=== PATIENT | male | born 2000 | race American Indian/Alaskan Native ===

== ENCOUNTER 2020-09-22 02:21 | Inpatient (IN) | payer OTHER ==
[2020-09-22] MEDS ORDERED: FAMOTIDINE 20 MG TAB PO ONE (05:09)
[2020-09-22] MEDS ORDERED: DICYCLOMINE 20 MG TAB PO ONE (05:09)
[2020-09-22] MEDS ORDERED: ONDANSETRON 4 MG ODT TAB PO ONE (05:09)
[2020-09-22 06:12] LABS: Bacteria,Urine 1+ /HPF (Negative); Bilirubin,Urine NEG (Negative); Blood,Urine NEG (Negative); Color,Urine Yellow (Yellow); Mucus,Urine FEW /HPF; Urobilinogen,Urine < 2.0 mg/dL (<2.0)
[2020-09-22 06:25] LABS: Basophils % (Auto) 0.4 % (0.0-1.8); Eosinophils # (Auto) 0.2 K/mm3 (0.0-0.4); Eosinophils % (Auto) 1.9 % (0.0-4.3); Hematocrit 42.7 % (35.5-45.6); Hemoglobin 14.6 gm/dl (11.8-15.2); Lymphocytes # (Auto) 1.3 K/mm3 (1.2-5.4); Lymphocytes % (Auto) 12.3 % (13.4-35.0); Mean Corpuscular HGB Conc 34 % (32-34); Mean Corpuscular Volume 87 fl (84-94); Monocytes # (Auto) 0.4 K/mm3 (0.0-0.8); Monocytes % (Auto) 4.1 % (0.0-7.3); Platelet Count 313 K/mm3 (140-440); Red Blood Count 4.93 M/mm3 (3.65-5.03); Red Cell Distribution Width 13.1 % (13.2-15.2)
[2020-09-22 06:36] LABS: Alanine Aminotransferase 21 units/L (7-56); Albumin 5.1 g/dL (3.9-5); BUN/Creatinine Ratio 39; Blood Urea Nitrogen 27 mg/dL (9-20); Calcium 9.7 mg/dL (8.4-10.2); Hemolysis Index 8
[2020-09-22] MEDS ORDERED: SODIUM CHLORIDE 0.9% 1000 ML 1,000 ML IV ONE (07:52)
[2020-09-22] MEDS ORDERED: PANTOPRAZOLE 40 MG INJ IV ONE (08:12)
--- NOTE | 2020-09-22 08:31 | Emergency Department Report ---
ED General Adult HPI - General Chief complaint: Abdominal Pain Stated complaint: N/V Time Seen by Provider: 09/22/20 07:50 Source: patient, EMS Mode of arrival: Ambulatory Limitations: No Limitations - History of Present Illness Initial comments: This is a 20-year-old male who is not complaining of abdominal pain to me. He states that he just precipitously vomited black material at home last night. He states that he went to the bathroom and noticed that he had black watery stool. Patient has no prior history of GI bleeding. He denies being on NSAIDs or taking alcohol recently. He states his only medication is Advair and an albuterol inhaler for asthma. He denies a history of HIV. -: Sudden Location: abdomen (Apparently did complain of abdominal pain at triage) Radiation: non-radiation Consistency: now resolved Improves with: none Worsens with: none Associated Symptoms: denies other symptoms - Related Data Home Medications Medication Instructions Recorded Confirmed Last Taken Albuterol Mdi (or & Nicu Only) 01/01/15 01/01/15 01/01/15 [ProAir HFA Inhaler] Budesoni/Formotero 160-4.5(Nf) 01/01/15 01/01/15 01/01/15 [Symbicort 160-4.5] Previous Rx's Medication Instructions Recorded Last Taken Type Azithromycin [Zithromax Z-THONG] 250 mg PO DAILY #6 tablet 01/01/15 Unknown Rx Prednisone [Prednisone 5 mg (6-Day 5 mg PO .TAPER #1 tab.ds.pk 01/01/15 Unknown Rx Pack, 21 Tabs)] Albuterol Mdi (or & Nicu Only) 2 puff IH QID PRN #8.5 gram 02/01/20 Unknown Rx [ProAir HFA Inhaler] Naproxen 500 mg PO Q8H PRN #20 tablet 02/01/20 Unknown Rx Allergies Allergy/AdvReac Type Severity Reaction Status Date / Time No Known Allergies Allergy Verified 02/01/20 09:05 ED Review of Systems ROS: Stated complaint: N/V Other details as noted in HPI Constitutional: denies: chills, fever Eyes: denies: eye pain, vision change ENT: denies: ear pain, throat pain Respiratory: denies: cough, shortness of breath Cardiovascular: denies: chest pain, palpitations Endocrine: no symptoms reported Gastrointestinal: as per HPI Genitourinary: denies: urgency, dysuria Musculoskeletal: denies: back pain, arthralgia Skin: denies: rash, lesions Neurological: denies: headache, weakness, paresthesias Psychiatric: denies: anxiety, depression Hematological/Lymphatic: denies: easy bleeding, easy bruising ED Past Medical Hx - Past Medical History Previous Medical History?: Yes Hx Asthma: Yes - Surgical History Past Surgical History?: Yes Additional Surgical History: Ecmo machine - Social History Smoking Status: Never Smoker - Medications Home Medications: Home Medications Medication Instructions Recorded Confirmed Last Taken Type Albuterol Mdi (or & Nicu Only) 01/01/15 01/01/15 01/01/15 History [ProAir HFA Inhaler] Azithromycin [Zithromax Z-THONG] 250 mg PO DAILY #6 tablet 01/01/15 Unknown Rx Budesoni/Formotero 160-4.5(Nf) 01/01/15 01/01/15 01/01/15 History [Symbicort 160-4.5] Prednisone [Prednisone 5 mg (6-Day 5 mg PO .TAPER #1 tab.ds.pk 01/01/15 Unknown Rx Pack, 21 Tabs)] Albuterol Mdi (or & Nicu Only) 2 puff IH QID PRN #8.5 gram 02/01/20 Unknown Rx [ProAir HFA Inhaler] Naproxen 500 mg PO Q8H PRN #20 tablet 02/01/20 Unknown Rx ED Physical Exam - General Limitations: No Limitations General appearance: alert, in no apparent distress, other (Very asthenic individual) - Head Head exam: Present: atraumatic, normocephalic - Eye Eye exam: Present: normal appearance. Absent: scleral icterus - ENT ENT exam: Present: mucous membranes moist - Neck Neck exam: Present: normal inspection - Respiratory Respiratory exam: Present: normal lung sounds bilaterally. Absent: respiratory distress - Cardiovascular Cardiovascular Exam: Present: regular rate, normal rhythm. Absent: systolic murmur, diastolic murmur, rubs, gallop - GI/Abdominal GI/Abdominal exam: Present: soft, tenderness (Perhaps slight discomfort in the epigastric area), normal bowel sounds. Absent: guarding, rebound, rigid, organomegaly, mass, bruit, pulsatile mass - Rectal Rectal exam: Present: heme (+) stool (Small sample but melanotic, 3+ positive), prostate enlargement (Question) - Extremities Exam Extremities exam: Present: normal inspection - Back Exam Back exam: Present: normal inspection - Neurological Exam Neurological exam: Present: alert, oriented X3, CN II-XII intact. Absent: motor sensory deficit - Psychiatric Psychiatric exam: Present: normal affect, normal mood - Skin Skin exam: Present: warm, dry, intact, normal color. Absent: rash ED Course Vital Signs 09/22/20 05:02 Temperature 97.8 F Pulse Rate 97 H Respiratory 20 Rate Blood Pressure 104/71 O2 Sat by Pulse 95 Oximetry - Reevaluation(s) Reevaluation #1: Patient given IV fluids, Protonix. Admit to hospitalist service. GI consultation. Clinically stable at this time. 09/22/20 08:31 Reevaluation #2: Spoke with Dr. Christie. He stated he would see patient later. 09/22/20 08:33 ED Medical Decision Making - Lab Data Result diagrams: 09/22/20 05:49 09/22/20 05:49 Critical care attestation.: If time is entered above; I have spent that time in minutes in the direct care of this critically ill patient, excluding procedure time. ED Disposition Clinical Impression: Upper GI bleeding Disposition: 09 OP ADMIT IP TO THIS HOSP Is pt being admited?: Yes Does the pt Need Aspirin: No Condition: Stable Referrals: PRIMARY CARE, [Primary Care Provider] - 3-5 Days Time of Disposition: 08:33
[2020-09-22 10:22] LABS: INR 1.22 (0.87-1.13)
[2020-09-22 10:23] LABS: Partial Thromboplastin Time 29.5 Sec. (24.2-36.6)
[2020-09-22] MEDS ORDERED: ACETAMINOPHEN 325 MG TAB PO PRN (12:23)
[2020-09-22] MEDS ORDERED: ONDANSETRON 4 MG/2 ML INJ IV PRN (12:23)
--- NOTE | 2020-09-22 12:25 | History and Physical Report ---
History of Present Illness Date of examination: 09/22/20 Date of admission: 09/22/20 09:36 Chief complaint: Black stool History of present illness: 20 year old M with a medical history of asthma who presents to the ED with cc of black stool and bloody vomit. He mentions symptoms started about a month prior to presentation. He noted that he is having difficulty with eating as he fears that he will have some abdominal pain. He is not so sure if pain is worse with eating or not. He mentions pain is random. He denies any history of GI bleed in the past. He denies any use of NSAIDs. No history of malignancy. He does not take alcohol and does not smoke. In ER, further work-up showed stable hemoglobin. GI was consulted for further evaluation. Patient started on PPI and made n.p.o. Past History Past Medical History: other (Asthma) Medications and Allergies Allergies Allergy/AdvReac Type Severity Reaction Status Date / Time No Known Allergies Allergy Verified 02/01/20 09:05 Home Medications Medication Instructions Recorded Confirmed Last Taken Type Albuterol Mdi (or & Nicu Only) 01/01/15 01/01/15 01/01/15 History [ProAir HFA Inhaler] Azithromycin [Zithromax Z-THONG] 250 mg PO DAILY #6 tablet 01/01/15 Unknown Rx Budesoni/Formotero 160-4.5(Nf) 01/01/15 01/01/15 01/01/15 History [Symbicort 160-4.5] Prednisone [Prednisone 5 mg (6-Day 5 mg PO .TAPER #1 tab.ds.pk 01/01/15 Unknown Rx Pack, 21 Tabs)] Albuterol Mdi (or & Nicu Only) 2 puff IH QID PRN #8.5 gram 02/01/20 Unknown Rx [ProAir HFA Inhaler] Naproxen 500 mg PO Q8H PRN #20 tablet 02/01/20 Unknown Rx Review of Systems All systems: negative (Black stool) Exam - Constitutional Vitals: Temp Pulse Resp BP Pulse Ox 98.2 F 81 14 140/58 100 09/22/20 10:00 09/22/20 10:00 09/22/20 10:00 09/22/20 10:00 09/22/20 10:00 General appearance: Present: no acute distress, well-nourished - EENT Eyes: Present: PERRL ENT: hearing intact, clear oral mucosa - Neck Neck: Present: supple, normal ROM - Respiratory Respiratory effort: normal Respiratory: bilateral: CTA - Cardiovascular Heart Sounds: Present: S1 & S2. Absent: rub, click - Extremities Extremities: pulses symmetrical, No edema Peripheral Pulses: within normal limits - Abdominal General gastrointestinal: Present: soft, tender (Slight discomfort around the umbilical area), non-distended, normal bowel sounds Male genitourinary: Present: normal - Integumentary Integumentary: Present: clear, warm, dry - Musculoskeletal Musculoskeletal: gait normal, strength equal bilaterally - Psychiatric Psychiatric: appropriate mood/affect, intact judgment & insight - Neurologic Neurologic: CNII-XII intact, moves all extremities Results - Labs CBC & Chem 7: 09/22/20 05:49 09/22/20 05:49 Labs: Laboratory Last Values WBC 10.5 K/mm3 (4.5-11.0) 09/22/20 05:49 RBC 4.93 M/mm3 (3.65-5.03) 09/22/20 05:49 Hgb 14.6 gm/dl (11.8-15.2) 09/22/20 05:49 Hct 42.7 % (35.5-45.6) 09/22/20 05:49 MCV 87 fl (84-94) 09/22/20 05:49 MCH 30 pg (28-32) 09/22/20 05:49 MCHC 34 % (32-34) 09/22/20 05:49 RDW 13.1 % (13.2-15.2) L 09/22/20 05:49 Plt Count 313 K/mm3 (140-440) 09/22/20 05:49 Lymph % (Auto) 12.3 % (13.4-35.0) L 09/22/20 05:49 [place] % (Auto) 4.1 % (0.0-7.3) 09/22/20 05:49 Eos % (Auto) 1.9 % (0.0-4.3) 09/22/20 05:49 Baso % (Auto) 0.4 % (0.0-1.8) 09/22/20 05:49 Lymph # (Auto) 1.3 K/mm3 (1.2-5.4) 09/22/20 05:49 [place] # (Auto) 0.4 K/mm3 (0.0-0.8) 09/22/20 05:49 Eos # (Auto) 0.2 K/mm3 (0.0-0.4) 09/22/20 05:49 Baso # (Auto) 0.0 K/mm3 (0.0-0.1) 09/22/20 05:49 Seg Neutrophils % 81.3 % (40.0-70.0) H 09/22/20 05:49 Seg Neutrophils # 8.5 K/mm3 (1.8-7.7) H 09/22/20 05:49 PT 15.2 Sec. (12.2-14.9) H 09/22/20 08:45 INR 1.22 (0.87-1.13) H 09/22/20 08:45 APTT 29.5 Sec. (24.2-36.6) 09/22/20 08:45 Sodium 136 mmol/L (137-145) L 09/22/20 05:49 Potassium 5.2 mmol/L (3.6-5.0) H 09/22/20 05:49 Chloride 99.8 mmol/L (98-107) 09/22/20 05:49 Carbon Dioxide 26 mmol/L (22-30) 09/22/20 05:49 Anion Gap 15 mmol/L 09/22/20 05:49 BUN 27 mg/dL (9-20) H 09/22/20 05:49 Creatinine 0.7 mg/dL (0.8-1.3) L 09/22/20 05:49 Estimated GFR > 60 ml/min 09/22/20 05:49 BUN/Creatinine Ratio 39 % 09/22/20 05:49 Glucose 92 mg/dL (75-100) 09/22/20 05:49 Calcium 9.7 mg/dL (8.4-10.2) 09/22/20 05:49 Total Bilirubin 0.80 mg/dL (0.1-1.2) 09/22/20 05:49 AST 20 units/L (5-40) 09/22/20 05:49 ALT 21 units/L (7-56) 09/22/20 05:49 Alkaline Phosphatase 57 units/L (35-129) 09/22/20 05:49 Total Protein 6.8 g/dL (6.3-8.2) 09/22/20 05:49 Albumin 5.1 g/dL (3.9-5) H 09/22/20 05:49 Albumin/Globulin Ratio 3.0 % 09/22/20 05:49 Lipase 16 units/L (13-60) 09/22/20 05:49 Urine Color Yellow (Yellow) 09/22/20 06:00 Urine Turbidity Clear (Clear) 09/22/20 06:00 Urine pH 6.0 (5.0-7.0) 09/22/20 06:00 Ur Specific [place] 1.027 (1.003-1.030) 09/22/20 06:00 Urine Protein 30 mg/dl mg/dL (Negative) 09/22/20 06:00 Urine Glucose (UA) Neg mg/dL (Negative) 09/22/20 06:00 Urine Ketones 80 mg/dL (Negative) 09/22/20 06:00 Urine Blood Neg (Negative) 09/22/20 06:00 Urine Nitrite Neg (Negative) 09/22/20 06:00 Urine Bilirubin Neg (Negative) 09/22/20 06:00 Urine Urobilinogen < 2.0 mg/dL (<2.0) 09/22/20 06:00 Ur Leukocyte Esterase Neg (Negative) 09/22/20 06:00 Urine WBC (Auto) 1.0 /HPF (0.0-6.0) 09/22/20 06:00 Urine RBC (Auto) 5.0 /HPF (0.0-6.0) 09/22/20 06:00 Urine Bacteria (Auto) 1+ /HPF (Negative) 09/22/20 06:00 Urine Mucus Few /HPF 09/22/20 06:00 Blood Type O POSITIVE 09/22/20 08:45 Antibody Screen Negative 09/22/20 08:45 Moreno/IV: IV Catheter Type [Left INT / Saline Lock Antecubital] Assessment and Plan Assessment and plan: Likely GI bleed from upper GI tract [BUN elevated] Hemoglobin is stable. Monitor for now Start PPI twice daily N.p.o. for now. Switch to clear liquid diet if no procedure planned today as per GI Gastroenterology evaluation Asthma Stable Continue Advair and albuterol as needed Slight hyperkalemia Trend potassium DVT prophylaxis-none Full code
--- NOTE | 2020-09-22 16:35 | Event Note ---
Date: 09/22/20 - full gi consult dictated - start po - if repeat h/h stable and tolerating po may dc - will schedule egd for tomorrow with plans to proceed based on above
--- NOTE | 2020-09-22 19:16 | Consultation ---
REFERRING PHYSICIAN: Liv Johns MD INDICATIONS: 1. Hematemesis. 2. Black stools. HISTORY OF PRESENT ILLNESS: The patient is a 20-year-old black male with no significant past medical history except for asthma, presents with signs of GI bleed. The patient reports he has been having this intermittent abdominal pain. He reports that yesterday he had a couple of bouts of black stools as well as coffee-ground emesis. He reports no NSAID use. He denies any history of GI bleeding. Of note, the patient reports he has been taking occasional Pepto-Bismol. The patient subsequently came to the Emergency Room, was evaluated and admitted for GI consultation. No other specific complaints. PAST MEDICAL HISTORY: Asthma. MEDICATIONS: Reviewed and updated in chart. ALLERGIES: No known drug allergies. SOCIAL HISTORY: Denies alcohol, tobacco or drug abuse. FAMILY HISTORY: Negative for colon cancer, IBD, or liver disease. REVIEW OF SYSTEMS: GENERAL: Reports mild weakness. HEENT: No visual complaints or tinnitus. PULMONARY: No shortness of breath. No cough. No chest pain. GASTROINTESTINAL: Reports dark stools and hematemesis. All points of 13-point review of systems otherwise negative. PHYSICAL EXAMINATION: VITAL SIGNS: Temperature of 98.2, pulse 81, respirations 18, blood pressure 140/60. GENERAL: Fairly nourished male, in no acute distress. HEENT: Pupils equal, round and reactive. PULMONARY: Rhonchi. CARDIOVASCULAR: Regular rhythm. ABDOMEN: Soft. SKIN: No obvious rashes. LABORATORY DATA: Pertinent for white count of 10.5, hemoglobin and hematocrit of 14.6 and 42.7, platelet count 313. Coags pertinent for INR of 1.2. Chem-7 within normal limits. ASSESSMENT AND PLAN: A 20-year-old black male with history of asthma, now presents with reported dark stool x 2 and coffee-ground emesis. The patient denies since being at the hospital any other further signs of bleeding. There is a question whether or not he had been taking Pepto-Bismol. Given the patient with no signs of active bleeding, if repeat H and H is stable and he is able to tolerate food, may be discharged with further management as an outpatient. PLAN: 1. Follow hematocrit and transfuse as needed. 2. PPI IV b.i.d. 3. Start p.o. diet, we will plan for n.p.o. after midnight. 4. If repeat H and H is stable and tolerating p.o., okay to discharge from GI standpoint. 5. If the patient is still here in a.m. and still concerns for bleeding, we will proceed with EGD. JOB# [id number] CAB/NTS
[2020-09-22] MEDS: PANTOPRAZOLE 40 MG INJ IV SCH (22:28)
[2020-09-23 06:30] LABS: Basophils % (Auto) 0.9 % (0.0-1.8); Eosinophils # (Auto) 0.8 K/mm3 (0.0-0.4); Eosinophils % (Auto) 14.2 % (0.0-4.3); Hematocrit 35.9 % (35.5-45.6); Hemoglobin 12.4 gm/dl (11.8-15.2); Lymphocytes # (Auto) 2.1 K/mm3 (1.2-5.4); Lymphocytes % (Auto) 38.1 % (13.4-35.0); Mean Corpuscular HGB Conc 35 % (32-34); Mean Corpuscular Volume 87 fl (84-94); Monocytes # (Auto) 0.5 K/mm3 (0.0-0.8); Monocytes % (Auto) 8.3 % (0.0-7.3); Platelet Count 277 K/mm3 (140-440); Red Blood Count 4.15 M/mm3 (3.65-5.03); Red Cell Distribution Width 13.3 % (13.2-15.2)
[2020-09-23 07:03] LABS: Blood Urea Nitrogen 15 mg/dL (9-20); Calcium 8.6 mg/dL (8.4-10.2); Hemolysis Index 6
[2020-09-23 07:31] LABS: BUN/Creatinine Ratio 21
[2020-09-23] MEDS: PANTOPRAZOLE 40 MG INJ IV SCH ×2 (10:13→21:13)
--- NOTE | 2020-09-23 10:26 | Progress Note ---
Assessment and Plan Assessment and plan: 20 year old M with a medical history of asthma who presents to the ED with cc of black stool and bloody vomit. He mentions symptoms started about a month prior to presentation. He noted that he is having difficulty with eating as he fears that he will have some abdominal pain. He is not so sure if pain is worse with eating or not. He mentions pain is random. He denies any history of GI bleed in the past. He denies any use of NSAIDs. No history of malignancy. He does not take alcohol and does not smoke. In ER, further work-up showed stable hemoglobin -14. GI was consulted for further evaluation. Patient started on PPI and made n.p.o. 09/23. Patient tolerated diet last night. Plan for EGD by gastroenterology team. Maintain n.p.o. Continue PPI. Plan Likely GI bleed from upper GI tract [BUN elevated] PPI Plan for EGD today by GI Hb 12 today Asthma Stable Slight hyperkalemia Resolved DVT prophylaxis-none Full code History Interval history: Has no complaints Tolerated diet last night NPO this AM for EGD Hospitalist Physical - Physical exam Narrative exam: VITAL SIGNS: Reviewed. GENERAL: Awake HEAD: No signs of head trauma. EYES: Pupils are equal. Extraocular motions intact. MOUTH: Oropharynx is normal. NECK: No adenopathy, no JVD. CHEST: Chest with diminished breath sounds bilaterally. No wheezes, rales, or rhonchi. CARDIAC: normal S1 and S2, without murmurs, gallops, or rubs. ABDOMEN: Soft, non tender and non distended. No rebound or guarding, and no masses palpated. Bowel Sounds normal. MUSCULOSKELETAL: No edema NEUROLOGIC EXAM: Alert and oriented x3. No focal neurologic deficits SKIN: No obvious lesions - Constitutional Vitals: Temp Pulse Resp BP Pulse Ox 98.8 F 89 18 97/49 99 09/23/20 04:43 09/23/20 04:43 09/23/20 04:43 09/23/20 04:43 09/23/20 04:43 Results - Labs CBC & Chem 7: 09/23/20 06:07 09/23/20 06:07 Labs: Laboratory Last Values WBC 5.6 K/mm3 (4.5-11.0) 09/23/20 06:07 RBC 4.15 M/mm3 (3.65-5.03) 09/23/20 06:07 Hgb 12.4 gm/dl (11.8-15.2) 09/23/20 06:07 Hct 35.9 % (35.5-45.6) D 09/23/20 06:07 MCV 87 fl (84-94) 09/23/20 06:07 MCH 30 pg (28-32) 09/23/20 06:07 MCHC 35 % (32-34) H 09/23/20 06:07 RDW 13.3 % (13.2-15.2) 09/23/20 06:07 Plt Count 277 K/mm3 (140-440) 09/23/20 06:07 Lymph % (Auto) 38.1 % (13.4-35.0) H 09/23/20 06:07 [place] % (Auto) 8.3 % (0.0-7.3) H 09/23/20 06:07 Eos % (Auto) 14.2 % (0.0-4.3) H 09/23/20 06:07 Baso % (Auto) 0.9 % (0.0-1.8) 09/23/20 06:07 Lymph # (Auto) 2.1 K/mm3 (1.2-5.4) 09/23/20 06:07 [place] # (Auto) 0.5 K/mm3 (0.0-0.8) 09/23/20 06:07 Eos # (Auto) 0.8 K/mm3 (0.0-0.4) H 09/23/20 06:07 Baso # (Auto) 0.0 K/mm3 (0.0-0.1) 09/23/20 06:07 Seg Neutrophils % 38.5 % (40.0-70.0) L 09/23/20 06:07 Seg Neutrophils # 2.2 K/mm3 (1.8-7.7) 09/23/20 06:07 PT 15.2 Sec. (12.2-14.9) H 09/22/20 08:45 INR 1.22 (0.87-1.13) H 09/22/20 08:45 APTT 29.5 Sec. (24.2-36.6) 09/22/20 08:45 Sodium 141 mmol/L (137-145) 09/23/20 06:07 Potassium 4.1 mmol/L (3.6-5.0) D 09/23/20 06:07 Chloride 106.7 mmol/L (98-107) 09/23/20 06:07 Carbon Dioxide 24 mmol/L (22-30) 09/23/20 06:07 Anion Gap 14 mmol/L 09/23/20 06:07 BUN 15 mg/dL (9-20) 09/23/20 06:07 Creatinine 0.7 mg/dL (0.8-1.3) L 09/23/20 06:07 Estimated GFR > 60 ml/min 09/23/20 06:07 BUN/Creatinine Ratio 21 % 09/23/20 06:07 Glucose 88 mg/dL (75-100) 09/23/20 06:07 Calcium 8.6 mg/dL (8.4-10.2) 09/23/20 06:07 Total Bilirubin 0.80 mg/dL (0.1-1.2) 09/22/20 05:49 AST 20 units/L (5-40) 09/22/20 05:49 ALT 21 units/L (7-56) 09/22/20 05:49 Alkaline Phosphatase 57 units/L (35-129) 09/22/20 05:49 Total Protein 6.8 g/dL (6.3-8.2) 09/22/20 05:49 Albumin 5.1 g/dL (3.9-5) H 09/22/20 05:49 Albumin/Globulin Ratio 3.0 % 09/22/20 05:49 Lipase 16 units/L (13-60) 09/22/20 05:49 Urine Color Yellow (Yellow) 09/22/20 06:00 Urine Turbidity Clear (Clear) 09/22/20 06:00 Urine pH 6.0 (5.0-7.0) 09/22/20 06:00 Ur Specific [place] 1.027 (1.003-1.030) 09/22/20 06:00 Urine Protein 30 mg/dl mg/dL (Negative) 09/22/20 06:00 Urine Glucose (UA) Neg mg/dL (Negative) 09/22/20 06:00 Urine Ketones 80 mg/dL (Negative) 09/22/20 06:00 Urine Blood Neg (Negative) 09/22/20 06:00 Urine Nitrite Neg (Negative) 09/22/20 06:00 Urine Bilirubin Neg (Negative) 09/22/20 06:00 Urine Urobilinogen < 2.0 mg/dL (<2.0) 09/22/20 06:00 Ur Leukocyte Esterase Neg (Negative) 09/22/20 06:00 Urine WBC (Auto) 1.0 /HPF (0.0-6.0) 09/22/20 06:00 Urine RBC (Auto) 5.0 /HPF (0.0-6.0) 09/22/20 06:00 Urine Bacteria (Auto) 1+ /HPF (Negative) 09/22/20 06:00 Urine Mucus Few /HPF 09/22/20 06:00 Blood Type O POSITIVE 09/22/20 08:45 Antibody Screen Negative 09/22/20 08:45 Moreno/IV: Voiding Method Toilet IV Catheter Type [Left INT / Saline Lock Antecubital] Active Medications - Current Medications Current Medications: Generic Name Dose Route Start Last Admin Trade Name Freq PRN Reason Stop Dose Admin Acetaminophen 650 mg 09/22/20 12:23 Acetaminophen 325 Mg Tab PO Q4H PRN Pain MILD(1-3)/Fever >100.5/ZHAO Ondansetron HCl 4 mg 09/22/20 12:23 Ondansetron 4 Mg/2 Ml Inj IV Q8H PRN Nausea And Vomiting Pantoprazole Sodium 40 mg 09/22/20 22:00 09/23/20 10:13 Pantoprazole 40 Mg Inj IV 40 mg BID DIANNE Administration Sodium Chloride 10 ml 09/22/20 22:00 09/23/20 10:13 Sodium Chloride 0.9% 10 Ml Flush Syringe IV 10 ml BID DIANNE Administration Sodium Chloride 10 ml 09/22/20 12:23 Sodium Chloride 0.9% 10 Ml Flush Syringe IV PRN PRN LINE FLUSH
[2020-09-23] MEDS ORDERED: SODIUM CHLORIDE 0.9% 1000 ML 1,000 ML ONE (12:20)
--- NOTE | 2020-09-23 12:21 | Anesthesia Day of Surgery ---
Anesthesia Day of Surgery - Day of Surgery Patient Examined: Yes Patient H&P Reviewed: Yes Patient is NPO: Yes
--- NOTE | 2020-09-23 12:21 | Anesthesia Consultation ---
Anesthesia Consult and Med Hx Date of service: 09/23/20 - Airway Anesthetic Teeth Evaluation: Good ROM Head & Neck: Adequate Mental/Hyoid Distance: Adequate Mallampati Class: Class III Intubation Access Assessment: Possibly Difficult - Pulmonary Exam CTA: Yes - Cardiac Exam Cardiac Exam: RRR - Pre-Operative Health Status ASA Pre-Surgery Classification: ASA3 Proposed Anesthetic Plan: MAC - Pulmonary Hx Asthma: Yes (persistent daily symptoms despite maintenance inhaler use; hx intubations) Hx Respiratory Symptoms: Yes (has required albuterol while inpatient for wheezing) SOB: No Home Oxygen Therapy: No - Cardiovascular System Hx Hypertension: No - Central Nervous System CVA: No - Endocrine Hx Renal Disease: No Hx Liver Disease: No Hx Insulin Dependent Diabetes: No Hx Non-Insulin Dependent Diabetes: No Hx Thyroid Disease: No - Hematic Hx Anemia: No - Other Systems Hx Obesity: No - Additional Comments Anesthesia Medical History Comments: No prior anesthetics or FHx anesthetic complications.
[2020-09-23] MEDS ORDERED: WATER FOR IRRIG STERILE 1,000 ML BOTTLE ONE (12:22)
[2020-09-23] MEDS ORDERED: propofoL 200 MG/20 ML VIAL IV ONE (13:09)
[2020-09-23] MEDS ORDERED: LIDOCAINE MPF (2%) 20 MG/1 ML VIAL 5 ML ONE (13:32)
--- NOTE | 2020-09-23 13:50 | Post Anesthesia Evaluation ---
- Post Anesthesia Evaluation Patient Participated: Yes Airway Patent: Yes Stable Respiratory Function: Yes Nausea/Vomiting: No Temp > 96.8F: Yes Pain Manageable: Yes Adequeate Hydration: Yes Anesthesia Complications: No
--- NOTE | 2020-09-23 14:04 | Post Operative Note ---
Pre-op diagnosis: melena Post-op diagnosis: same Findings: EGD: hiatal hernia - mild to moderate antral gastritis (bx's) - noted 3 white based ulcer (4-7 mm) w/o bleeding stigmata duodenal bulb - negative other Procedure: EGD w/ bx Anesthesia: MAC Surgeon: SHANITA AGUILAR Estimated blood loss: none Pathology: list Specimen disposition: to lab Condition: stable Disposition: floor
[2020-09-23] MEDS ORDERED: SODIUM CHLORIDE 0.9% 1000 ML 1,000 ML IV SCH (14:15)
--- NOTE | 2020-09-23 14:16 | Operative Report ---
PROCEDURE PERFORMED: EGD with cold biopsies. INDICATION: 1. Melena. 2. Gastrointestinal bleed. MEDICATIONS: Propofol per [employer]ACT[employer] MEDIA SPECIALIST. COMPLICATIONS: None. DESCRIPTION OF PROCEDURE: The patient brought to procedure suite. The patient had the procedure, discussed with him at length. All risks, complications, and benefits discussed after which the patient signed for the procedure performed. The patient was placed in left lateral decubitus position. Mouth block was placed in the patient's oral cavity. After adequate sedation medication as above, endoscope placed in mouth, brought to level of the second portion of duodenum. Retroflexion view performed. The patient's vital signs remained stable throughout the procedure. FINDINGS: There was a small hiatal hernia at GE junction at 38 cm from the gums. Esophagus otherwise appeared to be normal. There is [id number] antral gastritis without bleeding stigmata noted. Biopsies were taken and sent to pathology. The remaining stomach otherwise appeared to be normal. There were three 4-8 mm white based ulcers noted in the proximal duodenal bulb without bleeding stigmata. No interventions were performed. The remaining duodenum otherwise appeared to be normal. Retroflexion view performed in the stomach showed no other pathology other than noted above. The patient tolerated the procedure well. COMPLICATIONS: None. IMPRESSION: 1. Hiatal hernia. 2. Otherwise, normal esophagus. 3. Gastritis, biopsies performed. 4. Otherwise, normal stomach. 5. Peptic ulcer disease as noted above without bleeding stigmata or intervention as necessary. 6. Otherwise, normal EGD. RECOMMENDATIONS: 1. Follow hematocrit and transfuse as needed. 2. PPI daily. 3. Advance diet. 4. Okay to discharge from GI standpoint with followup as an outpatient. CC: Jaren Christie MD JOB# [id number] [facility]
[2020-09-24 07:44] VITALS: BP 108/59
--- NOTE | 2020-09-24 09:04 | Discharge Summary ---
Providers - Providers Date of Admission: 09/22/20 09:36 Date of discharge: 09/24/20 Attending physician: MITCH DE LUNA 09/22/20 08:26 Consult to Physician [CONS] Urgent Comment: Consulting Provider: BOBBI THOMSON Physician Instructions: Reason For Exam: UGIB Primary care physician: SCIENCE INTERPRETER Hospitalization Reason for admission: melena Condition: Stable Hospital course: 20 year old M with a medical history of asthma who presents to the ED with cc of black stool and bloody vomit. He mentions symptoms started about a month prior to presentation. He noted that he is having difficulty with eating as he fears that he will have some abdominal pain. He is not so sure if pain is worse with eating or not. He mentions pain is random. He denies any history of GI bleed in the past. He denies any use of NSAIDs. No history of malignancy. He does not take alcohol and does not smoke. In ER, further work-up showed stable hemoglobin -14. GI was consulted for further evaluation. Patient started on PPI and made n.p.o. 09/23. Patient tolerated diet last night. Plan for EGD by gastroenterology team. Maintain n.p.o. Continue PPI. EGD revealed hiatal hernia - mild to moderate antral gastritis (bx's) - noted 3 white based ulcer (4-7 mm) w/o bleeding stigmata duodenal bulb - negative other Recommendations were to continue PPI daily and follow-up biopsies as an outpatient. Dedicated discharge time 32 minutes. Disposition: - TO HOME OR SELFCARE Time spent for discharge: 32 - Discharge Diagnoses (1) Gastritis Status: Acute (2) Azotemia Status: Acute (3) Hyperkalemia Status: Acute (4) Upper GI bleeding Status: Acute Core Measure Documentation - Palliative Care Palliative Care/ Comfort Measures: Not Applicable - Core Measures Any of the following diagnoses?: none Exam - Constitutional Vitals: Temp Pulse Resp BP Pulse Ox 98.0 F 99 H 16 108/59 98 09/24/20 07:20 09/24/20 07:20 09/24/20 07:20 09/24/20 07:20 09/24/20 07:20 General appearance: Present: no acute distress, well-nourished - EENT Eyes: Present: PERRL ENT: hearing intact, clear oral mucosa - Neck Neck: Present: supple, normal ROM - Respiratory Respiratory effort: normal Respiratory: bilateral: CTA - Cardiovascular Heart Sounds: Present: S1 & S2. Absent: rub, click - Extremities Extremities: pulses symmetrical, No edema Peripheral Pulses: within normal limits - Abdominal General gastrointestinal: Present: soft, non-tender, non-distended, normal bowel sounds Male genitourinary: Present: normal - Integumentary Integumentary: Present: clear, warm, dry - Musculoskeletal Musculoskeletal: gait normal, strength equal bilaterally - Psychiatric Psychiatric: appropriate mood/affect, intact judgment & insight - Neurologic Neurologic: CNII-XII intact, moves all extremities Plan Activity: advance as tolerated Weight Bearing Status: Weight Bear as Tolerated Diet: regular Follow up with: PRIMARY CARE, [Primary Care Provider] - 3-5 Days SHANITA AGUILAR MD [Staff Physician] - 7 Days Prescriptions: Pantoprazole [Protonix] 40 mg PO QDAY #30 tablet
--- NOTE | 2020-09-24 10:30 | Gastroenterology Progress Note ---
Assessment and Plan 1. : PUD on egd - PPI qd - ok to dc - will sign off Subjective Date of service: 09/24/20 Interval history: - no GI issues overnight Objective - Constitutional Vitals: Temp Pulse Resp BP Pulse Ox 98.0 F 99 H 16 108/59 98 09/24/20 07:20 09/24/20 07:20 09/24/20 07:20 09/24/20 07:20 09/24/20 07:20 General appearance: no acute distress - EENT Eyes: PERRL - Respiratory Respiratory: bilateral: CTA - Cardiovascular Rhythm: regular Heart Sounds: Present: S1 & S2 - Gastrointestinal General gastrointestinal: Present: soft, non-tender, non-distended - Labs CBC & Chem 7: 09/23/20 06:07 09/23/20 06:07
[2020-09-24] MEDS: PANTOPRAZOLE 40 MG INJ IV SCH (11:29)
[2020-09-25] MEDS ORDERED: PANTOPRAZOLE 40 MG TAB PO SCH (07:30)
== END 2020-09-24 12:15 | disposition home or self-care (01) | DRG 379 ==
LOC: ED 02:21 → 3A 09:36 → 3B-SURG 15:14
PROVIDERS: ADMIT Internal Medicine; ATTEND Hospitalist
PROC: 0DB68ZX Excision of Stomach, Via Natural or Artificial Opening Endoscopic, Diagnostic (ICD-10-PCS; principal; 2020-09-23)
DX: K92.2 Gastrointestinal hemorrhage, unspecified (principal); E87.5 Hyperkalemia; J45.909 Unspecified asthma, uncomplicated; K44.9 Diaphragmatic hernia without obstruction or gangrene; Z79.899 Other long term (current) drug therapy; Z79.891 Long term (current) use of opiate analgesic; Z79.01 Long term (current) use of anticoagulants
CPT/HCPCS: 36415; 80048; 80053; 81001; 83690; 85025; 85610; 85730; 86850; 86900; 86901; 88305; 88342; 96374; 96375; G0378; C9113; J2704; J7030; Q0162

== ENCOUNTER 2020-12-30 11:40 | Emergency (ER) | payer SELFPAY ==
[2020-12-30 12:11] VITALS: BP 117/59
[2020-12-30] MEDS ORDERED: ONDANSETRON 4 MG ODT TAB PO ONE (13:15)
[2020-12-30] MEDS ORDERED: FAMOTIDINE 20 MG TAB PO ONE (13:15)
--- NOTE | 2020-12-30 13:17 | Emergency Department Report ---
ED Abdominal Pain HPI - General Chief Complaint: Abdominal Pain Stated Complaint: sob/weakness Time Seen by Provider: 12/30/20 13:03 Source: patient Mode of arrival: Ambulatory Limitations: No Limitations - History of Present Illness Initial Comments: 20-year-old male with a past medical history of asthma and PUD presents to the ER today with complaints of abdominal pain. Patient states that symptoms started 4 days ago. He states that the pain is across his central abdomen. He reports that is been intermittent with associated intermittent nausea and states that he has not had any energy for the past 4 days. He reports intermittent cough and intermittent rhinorrhea but no other URI symptoms, chest pain or shortness of breath. He denies any changes to his bowels. Patient states he has known hx of PUD after having an endoscopy 3 mths ago. He states he takes protonix daily. Patient denies any fever, UTI symptoms or any other symptoms at this time. MD Complaint: abdominal pain -: Gradual (4 days ago) - Related Data Home Medications Medication Instructions Recorded Confirmed Last Taken Albuterol Mdi (or & Nicu Only) 01/01/15 01/01/15 01/01/15 [ProAir HFA Inhaler] Budesoni/Formotero 160-4.5(Nf) 01/01/15 01/01/15 01/01/15 [Symbicort 160-4.5 (Nf)] Previous Rx's Medication Instructions Recorded Last Taken Type Azithromycin [Zithromax Z-THONG] 250 mg PO DAILY #6 tablet 01/01/15 Unknown Rx Albuterol Mdi (or & Nicu Only) 2 puff IH QID PRN #8.5 gram 02/01/20 Unknown Rx [ProAir HFA Inhaler] Famotidine [Pepcid] 20 mg PO BID #60 tablet 12/30/20 Unknown Rx Ondansetron [Zofran Odt] 4 mg PO Q8HR PRN #15 tab.rapdis 12/30/20 Unknown Rx Pantoprazole [Protonix TAB] 40 mg PO QDAY #30 tablet 12/30/20 Unknown Rx Allergies Allergy/AdvReac Type Severity Reaction Status Date / Time No Known Allergies Allergy Verified 02/01/20 09:05 ED Review of Systems ROS: Stated complaint: sob/weakness Other details as noted in HPI Comment: All other systems reviewed and negative Constitutional: weakness, other (Generalized fatigue). denies: chills, fever, malaise Eyes: denies: eye pain, eye discharge, vision change ENT: denies: ear pain, throat pain, dental pain, hearing loss, congestion Respiratory: cough (Mild intermittent cough). denies: orthopnea, shortness of breath, SOB with exertion, SOB at rest, stridor, wheezing Cardiovascular: denies: chest pain, palpitations Gastrointestinal: abdominal pain, nausea. denies: vomiting, diarrhea, cons tipation, hematemesis, melena, hematochezia Genitourinary: denies: urgency, dysuria, frequency, hematuria, discharge, testicular pain, testicular mass Musculoskeletal: denies: back pain, joint swelling, arthralgia Skin: denies: rash, lesions Neurological: denies: headache, weakness, numbness, paresthesias, confusion, abnormal gait, vertigo Psychiatric: denies: anxiety, depression, visual hallucinations, homicidal thoughts, suicidal thoughts Hematological/Lymphatic: denies: easy bleeding, easy bruising ED Past Medical Hx - Past Medical History Previous Medical History?: Yes Hx Hypertension: No Hx Liver Disease: No Hx Renal Disease: No Hx Asthma: Yes (persistent daily symptoms despite maintenance inhaler use; hx intubations) - Surgical History Additional Surgical History: Ecmo machine - Social History Smoking Status: Never Smoker Substance Use Type: None - Medications Home Medications: Home Medications Medication Instructions Recorded Confirmed Last Taken Type Albuterol Mdi (or & Nicu Only) 01/01/15 01/01/15 01/01/15 History [ProAir HFA Inhaler] Azithromycin [Zithromax Z-THONG] 250 mg PO DAILY #6 tablet 01/01/15 Unknown Rx Budesoni/Formotero 160-4.5(Nf) 01/01/15 01/01/15 01/01/15 History [Symbicort 160-4.5 (Nf)] Albuterol Mdi (or & Nicu Only) 2 puff IH QID PRN #8.5 gram 02/01/20 Unknown Rx [ProAir HFA Inhaler] Famotidine [Pepcid] 20 mg PO BID #60 tablet 12/30/20 Unknown Rx Ondansetron [Zofran Odt] 4 mg PO Q8HR PRN #15 tab.rapdis 12/30/20 Unknown Rx Pantoprazole [Protonix TAB] 40 mg PO QDAY #30 tablet 12/30/20 Unknown Rx ED Physical Exam - General Limitations: No Limitations General appearance: alert, in no apparent distress - Head Head exam: Present: atraumatic, normocephalic, normal inspection - Eye Eye exam: Present: normal appearance, PERRL, EOMI Pupils: Present: normal accommodation - ENT ENT exam: Present: normal exam, mucous membranes moist - Neck Neck exam: Present: normal inspection, full ROM - Respiratory Respiratory exam: Present: normal lung sounds bilaterally. Absent: respiratory distress, wheezes, rales, rhonchi - Cardiovascular Cardiovascular Exam: Present: regular rate, normal rhythm, normal heart sounds - GI/Abdominal GI/Abdominal exam: Present: soft. Absent: distended, tenderness, guarding, rebound, rigid - Back Exam Back exam: Present: normal inspection - Neurological Exam Neurological exam: Present: alert, oriented X3, CN II-XII intact, normal gait - Psychiatric Psychiatric exam: Present: normal affect, normal mood - Skin Skin exam: Present: intact ED Course Vital Signs 12/30/20 12:07 Temperature 98 F Pulse Rate 92 H Respiratory 18 Rate Blood Pressure 117/59 O2 Sat by Pulse 100 Oximetry ED Medical Decision Making - Lab Data Result diagrams: 12/30/20 13:25 12/30/20 13:25 - Medical Decision Making The patient is resting comfortably and, is alert and in no distress. Repeat exam is unremarkable and benign; in particular, there is no discomfort at McBurney's point and there is no pulsatile mass. He is neurologically intact and ambulatory in the ER. Labs reviewed. His history, exam, and current condition do not suggest acute appendicitis, bowel obstruction, acute cholecystitis, bowel perforation, major GI bleed, severe diverticulitis, abdominal aortic aneurysm, mesenteric ischemia, volvulus, sepsis or other significant pathology to warrant further testing, continued ED treatment, admission or surgical evaluation at this point. His vital signs have been stable. Discussed lab results, and treatment plan with patient. Also discussed worsening signs and symptoms with patient and if they develop to return immediately to the ER. Patient expressed understanding of instructions and agree with plan. He was stable at time of discharge. Critical care attestation.: If time is entered above; I have spent that time in minutes in the direct care of this critically ill patient, excluding procedure time. ED Disposition Clinical Impression: Abdominal pain, Hx of peptic ulcer Disposition: DC-01 TO HOME OR SELFCARE Is pt being admited?: No Does the pt Need Aspirin: No Condition: Stable Instructions: Peptic Ulcer, Abdominal Pain, Adult, [id number], Peptic Ulcer Eating Plan Additional Instructions: Continue the protonix and take the pepcid and zofran as prescribed. Recommend that she avoid any caffeinated foods, spicy or acidic foods, NSAIDs or alcohol as this can flareup your gastritis/peptic ulcers. Recommend that you increase your water intake. Follow-up with your GI specialist or primary care doctor. Return to the ER if you have worsening abdominal pain with uncontrollable vomiting, bloody stools, and fever (100.5 or higher) Prescriptions: Famotidine [Pepcid] 20 mg PO BID #60 tablet Pantoprazole [Protonix TAB] 40 mg PO QDAY #30 tablet Ondansetron [Zofran Odt] 4 mg PO Q8HR PRN #15 tab.rapdis PRN Reason: Nausea Referrals: MARTY ALEMAN MD [Staff Physician] - 3-5 Days Forms: Work/School Release Form(ED) Time of Disposition: 16:05
[2020-12-30 13:37] LABS: Basophils # (Auto) 0.1 K/mm3 (0.0-0.1); Basophils % (Auto) 0.5 % (0.0-1.8); Eosinophils # (Auto) 0.9 K/mm3 (0.0-0.4); Hematocrit 39.6 % (35.5-45.6); Hemoglobin 13.1 gm/dl (11.8-15.2); Lymphocytes # (Auto) 1.1 K/mm3 (1.2-5.4); Lymphocytes % (Auto) 8.5 % (13.4-35.0); Mean Corpuscular HGB Conc 33 % (32-34); Mean Corpuscular Volume 75 fl (84-94); Monocytes # (Auto) 0.7 K/mm3 (0.0-0.8); Monocytes % (Auto) 5.1 % (0.0-7.3); Platelet Count 347 K/mm3 (140-440); Red Blood Count 5.29 M/mm3 (3.65-5.03); Red Cell Distribution Width 15.1 % (13.2-15.2)
[2020-12-30 13:57] LABS: Alanine Aminotransferase 17 units/L (7-56); Albumin 4.8 g/dL (3.9-5); Blood Urea Nitrogen 10 mg/dL (9-20); Calcium 9.3 mg/dL (8.4-10.2); Hemolysis Index 18
[2020-12-30 14:20] LABS: BUN/Creatinine Ratio 14; Bilirubin,Direct < 0.2 mg/dL (0-0.2)
[2020-12-30 15:56] LABS: Bilirubin,Urine NEG (Negative); Blood,Urine NEG (Negative); Color,Urine Yellow (Yellow); Mucus,Urine 2+ /HPF; Urobilinogen,Urine < 2.0 mg/dL (<2.0); WBC,Urine < 1.0 /HPF (0.0-6.0)
== END 2020-12-30 17:31 | disposition home or self-care (01) ==
LOC: ED 11:40
DX: K27.9 Peptic ulcer, site unspecified, unspecified as acute or chronic, without hemorrhage or perforation (principal); J45.909 Unspecified asthma, uncomplicated; Z79.899 Other long term (current) drug therapy
CPT/HCPCS: 36415; 80048; 80076; 81001; 83690; 85025; 99283

== ENCOUNTER 2021-05-31 13:35 | Emergency (ER) | payer SELFPAY ==
[2021-05-31] MEDS ORDERED: ALBUTEROL 2.5 MG/3 ML NEBU IH ONE (16:04)
--- NOTE | 2021-05-31 16:36 | Emergency Department Report ---
ED General Adult HPI - General Chief complaint: Adult Asthma Stated complaint: ASTHMA Time Seen by Provider: 05/31/21 16:03 Source: patient Mode of arrival: Ambulatory Limitations: No Limitations - History of Present Illness Initial comments: 21-year-old -[place] male patient presents with complaints of shortness of breath and cough starting last night. He has a history of asthma and states his inhalers were not working. Patient has been intubated for his asthma in the past. Patient also reports that he was diagnosed with COVID-19 05/08/21. He denies any recent long travel, leg pain/swelling, history of DVT/PE/cancer, hemoptysis or chest pain. Shortness of breath occurs at rest and with ambulation. - Related Data Home Medications Medication Instructions Recorded Confirmed Last Taken Albuterol Mdi (or & Nicu Only) 01/01/15 01/01/15 01/01/15 [ProAir HFA Inhaler] Budesoni/Formotero 160-4.5(Nf) 01/01/15 01/01/15 01/01/15 [Symbicort 160-4.5 (Nf)] Previous Rx's Medication Instructions Recorded Last Taken Type Azithromycin [Zithromax Z-THONG] 250 mg PO DAILY #6 tablet 01/01/15 Unknown Rx Albuterol Mdi (or & Nicu Only) 2 puff IH QID PRN #8.5 gram 02/01/20 Unknown Rx [ProAir HFA Inhaler] Famotidine [Pepcid] 20 mg PO BID #60 tablet 12/30/20 Unknown Rx Ondansetron [Zofran Odt] 4 mg PO Q8HR PRN #15 tab.rapdis 12/30/20 Unknown Rx Pantoprazole [Protonix TAB] 40 mg PO QDAY #30 tablet 12/30/20 Unknown Rx Albuterol Mdi (or & Nicu Only) 2 puff IH QID PRN #8.5 gram 05/31/21 Unknown Rx [ProAir HFA Inhaler] Prednisone [predniSONE 10 mg 10 mg PO .TAPER #1 tab.ds.pk 05/31/21 Unknown Rx (6-Day Pack, 21 Tabs)] Allergies Allergy/AdvReac Type Severity Reaction Status Date / Time No Known Allergies Allergy Verified 02/01/20 09:05 ED Review of Systems ROS: Stated complaint: ASTHMA Other details as noted in HPI ED Past Medical Hx - Past Medical History Previous Medical History?: Yes Hx Hypertension: No Hx Liver Disease: No Hx Renal Disease: No Hx Asthma: Yes (persistent daily symptoms despite maintenance inhaler use; hx intubations) - Surgical History Past Surgical History?: Yes Additional Surgical History: Ecmo machine - Social History Smoking Status: Never Smoker Substance Use Type: Alcohol - Medications Home Medications: Home Medications Medication Instructions Recorded Confirmed Last Taken Type Albuterol Mdi (or & Nicu Only) 01/01/15 01/01/15 01/01/15 History [ProAir HFA Inhaler] Azithromycin [Zithromax Z-THONG] 250 mg PO DAILY #6 tablet 01/01/15 Unknown Rx Budesoni/Formotero 160-4.5(Nf) 01/01/15 01/01/15 01/01/15 History [Symbicort 160-4.5 (Nf)] Albuterol Mdi (or & Nicu Only) 2 puff IH QID PRN #8.5 gram 02/01/20 Unknown Rx [ProAir HFA Inhaler] Famotidine [Pepcid] 20 mg PO BID #60 tablet 12/30/20 Unknown Rx Ondansetron [Zofran Odt] 4 mg PO Q8HR PRN #15 tab.rapdis 12/30/20 Unknown Rx Pantoprazole [Protonix TAB] 40 mg PO QDAY #30 tablet 12/30/20 Unknown Rx Albuterol Mdi (or & Nicu Only) 2 puff IH QID PRN #8.5 gram 05/31/21 Unknown Rx [ProAir HFA Inhaler] Prednisone [predniSONE 10 mg 10 mg PO .TAPER #1 tab.ds.pk 05/31/21 Unknown Rx (6-Day Pack, 21 Tabs)] ED Physical Exam - General Limitations: No Limitations ED Course Vital Signs 05/31/21 15:27 Temperature 98.6 F Pulse Rate 106 H Respiratory 20 Rate Blood Pressure 120/84 O2 Sat by Pulse 99 Oximetry ED Medical Decision Making - Lab Data Result diagrams: 05/31/21 16:27 05/31/21 16:27 Lab Results 05/31/21 05/31/21 05/31/21 Range/Units 16:27 16:27 16:27 WBC 6.0 (4.5-11.0) K/mm3 RBC 5.58 H (3.65-5.03) M/mm3 Hgb 14.4 (11.8-15.2) gm/dl Hct 43.3 (35.5-45.6) % MCV 78 L (84-94) fl MCH 26 L (28-32) pg MCHC 33 (32-34) % RDW 16.9 H (13.2-15.2) % Plt Count 362 (140-440) K/mm3 Eos % (Auto) Standpipe Tender Add Manual Diff Complete Total Counted 100 Seg Neuts % (Manual) 61.0 (40.0-70.0) % Band Neutrophils % 3.0 % Lymphocytes % (Manual) 22.0 (13.4-35.0) % Monocytes % (Manual) 7.0 (0.0-7.3) % Eosinophils % (Manual) 7.0 H (0.0-4.3) % Nucleated RBC % Not Reportable Seg Neutrophils # Man 3.7 (1.8-7.7) K/mm3 Band Neutrophils # 0.2 K/mm3 Lymphocytes # (Manual) 1.3 (1.2-5.4) K/mm3 Abs React Lymphs (Man) 0.0 K/mm3 Monocytes # (Manual) 0.4 (0.0-0.8) K/mm3 Eosinophils # (Manual) 0.4 (0.0-0.4) K/mm3 Basophils # (Manual) 0.0 (0.0-0.1) K/mm3 Metamyelocytes # 0.0 K/mm3 Myelocytes # 0.0 K/mm3 Promyelocytes # 0.0 K/mm3 Blast Cells # 0.0 K/mm3 WBC Morphology Not Reportable TNR Hypersegmented Neuts Not Reportable Hyposegmented Neuts Not Reportable Hypogranular Neuts Not Reportable Smudge Cells Not Reportable Toxic Granulation Not Reportable Toxic Vacuolation Not Reportable Dohle Bodies Not Reportable Pelger-Huet Anomaly Not Reportable Vanessa Rods Not Reportable Platelet Estimate Not Reportable Clumped Platelets Not Reportable Plt Clumps, EDTA Not Reportable Large Platelets Not Reportable Giant Platelets Not Reportable Platelet Satelliting Not Reportable Plt Morphology Comment Not Reportable RBC Morphology Not Reportable Dimorphic RBCs Not Reportable Polychromasia Not Reportable Hypochromasia Not Reportable Poikilocytosis Not Reportable Anisocytosis 1+ Microcytosis Not Reportable Macrocytosis Not Reportable Spherocytes Not Reportable Pappenheimer Bodies Not Reportable Sickle Cells Not Reportable Target Cells Not Reportable Tear Drop Cells Not Reportable Ovalocytes Not Reportable Helmet Cells Not Reportable [place] Bodies Not Reportable Mather Rings Not Reportable [place] Cells Not Reportable Bite Cells Not Reportable Crenated Cell Not Reportable Elliptocytes Not Reportable Acanthocytes (Spur) Not Reportable Rouleaux Not Reportable Hemoglobin C Crystals Not Reportable Schistocytes Not Reportable Malaria parasites Not Reportable Demetri Bodies Not Reportable Hem Pathologist Commnt No D-Dimer (0-234) ng/mlDDU Sodium 139 (137-145) mmol/L Potassium 4.6 (3.6-5.0) mmol/L Chloride 100.5 (98-107) mmol/L Carbon Dioxide 26 (22-30) mmol/L Anion Gap 17 mmol/L BUN 9 (9-20) mg/dL Creatinine 0.8 (0.8-1.3) mg/dL Estimated GFR > 60 ml/min BUN/Creatinine Ratio 11 % Glucose 91 (75-100) mg/dL Calcium 10.4 H (8.4-10.2) mg/dL 05/31/21 Range/Units 17:21 WBC (4.5-11.0) K/mm3 RBC (3.65-5.03) M/mm3 Hgb (11.8-15.2) gm/dl Hct (35.5-45.6) % MCV (84-94) fl MCH (28-32) pg MCHC (32-34) % RDW (13.2-15.2) % Plt Count (140-440) K/mm3 Eos % (Auto) Add Manual Diff Total Counted Seg Neuts % (Manual) (40.0-70.0) % Band Neutrophils % % Lymphocytes % (Manual) (13.4-35.0) % Monocytes % (Manual) (0.0-7.3) % Eosinophils % (Manual) (0.0-4.3) % Nucleated RBC % Seg Neutrophils # Man (1.8-7.7) K/mm3 Band Neutrophils # K/mm3 Lymphocytes # (Manual) (1.2-5.4) K/mm3 Abs React Lymphs (Man) K/mm3 Monocytes # (Manual) (0.0-0.8) K/mm3 Eosinophils # (Manual) (0.0-0.4) K/mm3 Basophils # (Manual) (0.0-0.1) K/mm3 Metamyelocytes # K/mm3 Myelocytes # K/mm3 Promyelocytes # K/mm3 Blast Cells # K/mm3 WBC Morphology Hypersegmented Neuts Hyposegmented Neuts Hypogranular Neuts Smudge Cells Toxic Granulation Toxic Vacuolation Dohle Bodies Pelger-Huet Anomaly Vanessa Rods Platelet Estimate Clumped Platelets Plt Clumps, EDTA Large Platelets Giant Platelets Platelet Satelliting Plt Morphology Comment RBC Morphology Dimorphic RBCs Polychromasia Hypochromasia Poikilocytosis Anisocytosis Microcytosis Macrocytosis Spherocytes Pappenheimer Bodies Sickle Cells Target Cells Tear Drop Cells Ovalocytes Helmet Cells [place] Bodies Mather Rings [place] Cells Bite Cells Crenated Cell Elliptocytes Acanthocytes (Spur) Rouleaux Hemoglobin C Crystals Schistocytes Malaria parasites Demetri Bodies Hem Pathologist Commnt D-Dimer < 135 (0-234) ng/mlDDU Sodium (137-145) mmol/L Potassium (3.6-5.0) mmol/L Chloride (98-107) mmol/L Carbon Dioxide (22-30) mmol/L Anion Gap mmol/L BUN (9-20) mg/dL Creatinine (0.8-1.3) mg/dL Estimated GFR ml/min BUN/Creatinine Ratio % Glucose (75-100) mg/dL Calcium (8.4-10.2) mg/dL - Radiology Data Radiology results: report reviewed - Medical Decision Making 21-year-old -[place] male patient presents with complaints of shortness of breath and cough starting last night. He has a history of asthma and states his inhalers were not working. Patient has been intubated for his asthma in the past. Patient also reports that he was diagnosed with COVID-19 05/08/21. He denies any recent long travel, leg pain/swelling, history of DVT/PE/cancer, hemoptysis or chest pain. Shortness of breath occurs at rest and with ambulation. Diffuse wheezing of the lungs noted bilaterally on exam. Chest x-ray is normal. Given recent Covid infection and elevated heart rate, dimer was performed and is negative. Patient given 2 rounds of albuterol DuoNeb continuously, Decadron, and mag sulfate. He states his shortness of breath has significantly improved. Heart rate rechecked and is at 100, this is likely elevated due to neb treatments. He is well-appearing and no retractions are noted. Patient stable for discharge home. Strict return precautions discussed in detail patient verbalized understanding. He is to follow-up with primary care within 3 to 5 days. Critical care attestation.: If time is entered above; I have spent that time in minutes in the direct care of this critically ill patient, excluding procedure time. ED Disposition Clinical Impression: Asthma exacerbation Disposition: HOME / SELF CARE / HOMELESS Is pt being admited?: No Condition: Stable Instructions: Asthma, Adult Prescriptions: Prednisone [predniSONE 10 mg (6-Day Pack, 21 Tabs)] 10 mg PO .TAPER #1 tab.ds.pk Albuterol Mdi (or & Nicu Only) [ProAir HFA Inhaler] 2 puff IH QID PRN #8.5 gram PRN Reason: Shortness Of Breath Referrals: PRIMARY CARE, [Primary Care Provider] - 3-5 Days [facility] [Provider Group] - 3-5 Days Forms: Work/School Release Form(ED)
[2021-05-31] MEDS: dexAMETHasone 4 MG/ML VIAL IM STA (16:51)
[2021-05-31 16:57] LABS: Hematocrit 43.3 % (35.5-45.6); Hemoglobin 14.4 gm/dl (11.8-15.2); Mean Corpuscular HGB Conc 33 % (32-34); Mean Corpuscular Volume 78 fl (84-94); Platelet Count 362 K/mm3 (140-440); Red Blood Count 5.58 M/mm3 (3.65-5.03); Red Cell Distribution Width 16.9 % (13.2-15.2)
--- NOTE | 2021-05-31 16:57 | XRay Report ---
] CHEST 2 VIEWS INDICATION / CLINICAL INFORMATION: shortness of breath. COMPARISON: 02/01/2020 FINDINGS: SUPPORT DEVICES: None. HEART / MEDIASTINUM: No significant abnormality. LUNGS / PLEURA: No significant pulmonary or pleural abnormality. No pneumothorax. ADDITIONAL FINDINGS: No significant additional findings. IMPRESSION: 1. No acute findings. Signer Name: Rommel Smith MD Signed: 05/31/2021 4:52 PM Workstation Name: [id number]
[2021-05-31] MEDS: IPRATROPIUM 0.02% NEBU 2.5 ML IH ONE ×2 (17:06→19:40)
[2021-05-31] MEDS: ALBUTEROL 2.5 MG/3 ML NEBU IH ONE ×2 (17:07→19:40)
[2021-05-31 17:13] LABS: BUN/Creatinine Ratio 11; Blood Urea Nitrogen 9 mg/dL (9-20); Calcium 10.4 mg/dL (8.4-10.2); Hemolysis Index 9
[2021-05-31 18:45] LABS: Total Cells Counted 100
[2021-05-31 18:46] LABS: Anisocytosis 1+; Band Neutrophils # (Manual) 0.2 K/mm3
[2021-05-31] MEDS: MAGNESIUM SULFATE 2 GM/50 ML BAG IV ONE (21:28)
[2021-05-31 22:23] VITALS: BP 104/73
== END 2021-05-31 22:23 | disposition home or self-care (01) ==
LOC: ED 13:35
DX: J45.901 Unspecified asthma with (acute) exacerbation (principal); Z98.890 Other specified postprocedural states
CPT/HCPCS: 36415; 71046; 80048; 85007; 85025; 85379; 94640; 96365; 96372; 99284; J1100; J3475; 94644

== ENCOUNTER 2021-07-19 23:32 | Emergency (ER) | payer SELFPAY ==
[2021-07-20 00:35] VITALS: BP 119/76
[2021-07-20] MEDS ORDERED: IPRATROPIUM/ALBUTEROL SULFATE 3 ML AMPUL.NEB IH ONE (01:29)
[2021-07-20] MEDS ORDERED: predniSONE 50 MG TAB PO STA (01:29)
--- NOTE | 2021-07-20 02:38 | Emergency Department Report ---
ED Asthma HPI - General Chief Complaint: Adult Asthma Stated Complaint: ASTHMA Source: patient Mode of arrival: Ambulatory Limitations: No Limitations - History of Present Illness Initial Comments: 21-year-old F [place] male with a known past medical history of asthma [facility] emerge department complaining of an asthma flareup which he thinks secondary to the weather. He is taken for nebulizer treatment today but in the nebulizer machine has broken on the fourth treatment which is the reason for his visit to the ER today. Reports no fever, chills, sweats but no hemoptysis no hematemesis no hematochezia, no nausea, no vomiting, no diarrhea, MD Complaint: "asthma attack", wheezing -: Gradual Severity: mild Context: none known Associated Symptoms: none, dry cough Treatments Prior to Arrival: inhaled bronchodilator - Related Data Current Asthma Therapy: none Home Medications Medication Instructions Recorded Confirmed Last Taken Albuterol Mdi (or & Nicu Only) 01/01/15 01/01/15 01/01/15 [ProAir HFA Inhaler] Budesoni/Formotero 160-4.5(Nf) 01/01/15 01/01/15 01/01/15 [Symbicort 160-4.5 (Nf)] Previous Rx's Medication Instructions Recorded Last Taken Type Azithromycin [Zithromax Z-THONG] 250 mg PO DAILY #6 tablet 01/01/15 Unknown Rx Albuterol Mdi (or & Nicu Only) 2 puff IH QID PRN #8.5 gram 02/01/20 Unknown Rx [ProAir HFA Inhaler] Famotidine [Pepcid] 20 mg PO BID #60 tablet 12/30/20 Unknown Rx Ondansetron [Zofran Odt] 4 mg PO Q8HR PRN #15 tab.rapdis 12/30/20 Unknown Rx Pantoprazole [Protonix TAB] 40 mg PO QDAY #30 tablet 12/30/20 Unknown Rx Albuterol Mdi (or & Nicu Only) 2 puff IH QID PRN #8.5 gram 05/31/21 Unknown Rx [ProAir HFA Inhaler] Prednisone [predniSONE 10 mg 10 mg PO .TAPER #1 tab.ds.pk 05/31/21 Unknown Rx (6-Day Pack, 21 Tabs)] Albuterol Mdi (or & Nicu Only) 2 puff IH QID PRN #1 inhalation 11/14/21 Unknown Rx [ProAir HFA Inhaler] Montelukast [Singulair] 10 mg PO QPM #14 tablet 07/20/21 Unknown Rx predniSONE [Deltasone] 50 mg PO QDAY #5 tab 07/20/21 Unknown Rx Allergies Allergy/AdvReac Type Severity Reaction Status Date / Time No Known Allergies Allergy Verified 02/01/20 09:05 ED Review of Systems ROS: Stated complaint: ASTHMA Other details as noted in HPI Comment: All other systems reviewed and negative ED Past Medical Hx - Past Medical History Hx Hypertension: No Hx Liver Disease: No Hx Renal Disease: No Hx Asthma: Yes (persistent daily symptoms despite maintenance inhaler use; hx intubations) - Surgical History Additional Surgical History: Ecmo machine - Social History Smoking Status: Never Smoker Substance Use Type: Alcohol - Medications Home Medications: Home Medications Medication Instructions Recorded Confirmed Last Taken Type Albuterol Mdi (or & Nicu Only) 01/01/15 01/01/15 01/01/15 History [ProAir HFA Inhaler] Azithromycin [Zithromax Z-THONG] 250 mg PO DAILY #6 tablet 01/01/15 Unknown Rx Budesoni/Formotero 160-4.5(Nf) 01/01/15 01/01/15 01/01/15 History [Symbicort 160-4.5 (Nf)] Albuterol Mdi (or & Nicu Only) 2 puff IH QID PRN #8.5 gram 02/01/20 Unknown Rx [ProAir HFA Inhaler] Famotidine [Pepcid] 20 mg PO BID #60 tablet 12/30/20 Unknown Rx Ondansetron [Zofran Odt] 4 mg PO Q8HR PRN #15 tab.rapdis 12/30/20 Unknown Rx Pantoprazole [Protonix TAB] 40 mg PO QDAY #30 tablet 12/30/20 Unknown Rx Albuterol Mdi (or & Nicu Only) 2 puff IH QID PRN #8.5 gram 05/31/21 Unknown Rx [ProAir HFA Inhaler] Prednisone [predniSONE 10 mg 10 mg PO .TAPER #1 tab.ds.pk 05/31/21 Unknown Rx (6-Day Pack, 21 Tabs)] Albuterol Mdi (or & Nicu Only) 2 puff IH QID PRN #1 inhalation 07/20/21 Unknown Rx [ProAir HFA Inhaler] Montelukast [Singulair] 10 mg PO QPM #14 tablet 07/20/21 Unknown Rx predniSONE [Deltasone] 50 mg PO QDAY #5 tab 07/20/21 Unknown Rx ED Physical Exam - General Limitations: No Limitations General appearance: alert, in no apparent distress - Head Head exam: Present: atraumatic, normocephalic - Eye Eye exam: Present: normal appearance, PERRL, EOMI Pupils: Present: normal accommodation - ENT ENT exam: Present: mucous membranes moist - Neck Neck exam: Present: normal inspection - Respiratory Respiratory exam: Present: normal lung sounds bilaterally, wheezes. Absent: respiratory distress, rhonchi, stridor, chest wall tenderness, decreased breath sounds - Cardiovascular Cardiovascular Exam: Present: regular rate, normal rhythm. Absent: systolic murmur, diastolic murmur, rubs, gallop - GI/Abdominal GI/Abdominal exam: Present: soft, normal bowel sounds. Absent: tenderness, guarding - Rectal Rectal exam: Present: deferred - Extremities Exam Extremities exam: Present: normal inspection, full ROM, normal capillary refill. Absent: pedal edema, joint swelling - Back Exam Back exam: Present: normal inspection. Absent: CVA tenderness (R), CVA tenderness (L) - Neurological Exam Neurological exam: Present: alert, oriented X3, CN II-XII intact, normal gait. Absent: abnormal gait, motor sensory deficit, reflexes normal - Psychiatric Psychiatric exam: Present: normal affect, normal mood. Absent: anxious, manic - Skin Skin exam: Present: warm, dry, intact, normal color. Absent: rash, cyanosis, diaphoretic, erythema ED Course Vital Signs 07/20/21 00:34 Temperature 98.5 F Pulse Rate 89 Respiratory 18 Rate Blood Pressure 119/76 [Right] O2 Sat by Pulse 98 Oximetry ED Medical Decision Making - Medical Decision Making No altered mental status, saddle respirations, belly breathing or other signs of impending ventilatory failure. No intubations or recent admissions to the hospital for asthma. Unlikely pneumonia, CHF, COPD, GERD Workup Review include a chest x-ray which was normal she also received steroids and albuterol Therapies: Prednisone 50 mg PO. Albuterol nebulizer Reassessment: Patient improved with albuterol and ipratropium in less than 3 hours. Disposition: Discharge home with return precautions. Advised to follow up with primary care physician within next 24-48 hours. Aside from this acute exacerbation patient has been well controlled on baseline home regimen. Rx short steroid course, albuterol, Singulair, Critical care attestation.: If time is entered above; I have spent that time in minutes in the direct care of this critically ill patient, excluding procedure time. ED Disposition Clinical Impression: Asthma Disposition: HOME / SELF CARE / HOMELESS Is pt being admited?: No Condition: Stable Instructions: Asthma (ED), Asthma, Adult, Cough, Adult, [id number], How to Use a Metered Dose Inhaler, How to Use a Dry Powder Inhaler, Peak Flow Meter, How to Use a Nebulizer, Adult, Asthma Attack Prescriptions: predniSONE [Deltasone] 50 mg PO QDAY #5 tab Albuterol Mdi (or & Nicu Only) [ProAir HFA Inhaler] 2 puff IH QID PRN #1 inhalation PRN Reason: Shortness Of Breath Montelukast [Singulair] 10 mg PO QPM #14 tablet Referrals: PRIMARY CAREMD [Primary Care Provider] - 3-5 Days AUSTIN GUERRIER MD [Staff Physician] - 3-5 Days
== END 2021-07-20 03:20 | disposition home or self-care (01) ==
LOC: ED 23:32
DX: J45.909 Unspecified asthma, uncomplicated (principal)
CPT/HCPCS: 99282; J7512